=== PATIENT | female | born 1950 | race Asian ===

== ENCOUNTER 2017-03-28 15:47 | Inpatient (IN) | payer OTHER ==
[~2017-03-28] VITALS: Ht 154.9 cm; Wt 51.7 kg
[2017-03-28 17:11] LABS: BASOPHIL % 0.4 % (0-2); PLATELET COUNT 260 x10^3mcL (130-400)
[2017-03-28 17:26] LABS: CALCIUM 8.4 mg/dL (8.5-10.1); CARBON DIOXIDE 26.3 mmol/L (21-32); POTASSIUM SERUM 3.5 mmol/L (3.5-5.1)
[2017-03-28 17:30] LABS: ALBUMIN 3.3 g/dL (3.4-5.0); BILIRUBIN TOTAL 0.2 mg/dL (0.20-1.00); TOTAL PROTEIN, SERUM 7.4 g/dL (6.4-8.2)
[2017-03-28] MEDS ORDERED: LOSARTAN POTASS25 M1 PO (18:24)
[2017-03-28] MEDS ORDERED: ASPIR 8181 MG PO (18:27)
[2017-03-28] MEDS ORDERED: PRA10 PO (18:32)
[2017-03-28 19:23] VITALS: BP 167/69
[2017-03-28 19:26] VITALS: Ht 154.9 cm; Wt 51.7 kg
[2017-03-28 21:30] LABS: CHOLESTEROL/HDL RATIO 3.4; MAGNESIUM 1.7 mg/dL (1.8-2.4)
[2017-03-28 21:41] LABS: FREE T4 1.4 ng/dL (0.76-1.46); FREE THYROXINE INDEX 4.6 ug/dL (1.4-4.5); T4(THYROXINE) 12.7 ug/dL (4.7-13.3)
[2017-03-28 21:47] LABS: T3 TOTAL 0.87 ng/mL
[2017-03-28 22:11] LABS: UA SPECIFIC GRAVITY <=1.005 (1.005-1.035); microscopic required? YES; urine erythrocyte NEGATIVE (NEGATIVE)
[2017-03-28 22:58] LABS: AMPHETAMINE QUAL UR NONE DETECTED (NEG <=1000)
[2017-03-29 05:31] VITALS: BP 151/69
[2017-03-29 07:29] LABS: CALCIUM 8.6 mg/dL (8.5-10.1); CARBON DIOXIDE 27.9 mmol/L (21-32); MAGNESIUM 1.9 mg/dL (1.8-2.4); POTASSIUM SERUM 3.9 mmol/L (3.5-5.1)
[2017-03-29 07:36] LABS: BASOPHIL % 0.4 % (0-2); PLATELET COUNT 254 x10^3mcL (130-400); RED CELL DISTRIBUTION WIDTH 12.8 % (11.5-14.5)
[2017-03-29 09:03] VITALS: BP 166/67
[2017-03-29 13:21] VITALS: BP 155/78
[2017-03-29 16:26] VITALS: BP 135/64
[2017-03-29 20:49] VITALS: BP 139/58
[2017-03-30 05:44] VITALS: BP 151/62
[2017-03-30] MEDS ORDERED: LOSARTAN POTASS25 M1 PO (06:56)
[2017-03-30] MEDS ORDERED: KEFLEX500 M1 PO (06:57)
[2017-03-30] MEDS ORDERED: LAC PO (06:57)
[2017-03-30] MEDS ORDERED: HYDROCHLOROTH12.5 M2 PO (06:58)
[2017-03-30] MEDS ORDERED: AMLODIPINE BESYL5 M2 PO (06:58)
[2017-03-30 07:01] LABS: BASOPHIL % 0.4 % (0-2); PLATELET COUNT 270 x10^3mcL (130-400); RED CELL DISTRIBUTION WIDTH 13.2 % (11.5-14.5)
[2017-03-30 07:09] LABS: CALCIUM 8.8 mg/dL (8.5-10.1); CARBON DIOXIDE 28.5 mmol/L (21-32); MAGNESIUM 1.8 mg/dL (1.8-2.4); POTASSIUM SERUM 3.7 mmol/L (3.5-5.1)
[2017-03-30 08:04] VITALS: BP 128/56; BP 151/62
[2017-03-30 08:34] VITALS: BP 128/56
== END 2017-03-30 12:10 | disposition home or self-care (01) | DRG 304 ==
LOC: ED 15:47 → DU 18:20
PROVIDERS: Emergency Medicine; Student in an Organized Health Care Education/Training Program
DX: I16.1 Hypertensive emergency (principal); N17.0 Acute kidney failure with tubular necrosis; N39.0 Urinary tract infection, site not specified; E87.1 Hypo-osmolality and hyponatremia; E44.1 Mild protein-calorie malnutrition; R73.03 Prediabetes; E83.42 Hypomagnesemia; E83.51 Hypocalcemia; E78.1 Pure hyperglyceridemia; D50.9 Iron deficiency anemia, unspecified; Z68.22 Body mass index [BMI] 22.0-22.9, adult
CPT/HCPCS: 83880; 84439; J0696; J7030

== ENCOUNTER 2017-04-06 05:59 | Inpatient (IN) | payer OTHER ==
[~2017-04-06] VITALS: Ht 154.9 cm; Wt 52.6 kg
[~2017-04-06 05:59] MED LIST: AMLODIPINE BESYL5 M2 PO; ASPIR 8181 MG PO; HYDROCHLOROTH12.5 M2 PO; KEFLEX500 M1 PO; LAC PO; LOSARTAN POTASS25 M1 PO; PRA10 PO
[2017-04-06 06:08] VITALS: Ht 154.9 cm; Wt 52.6 kg
[2017-04-06 07:34] LABS: BASOPHIL % 0.4 % (0-2); PLATELET COUNT 265 x10^3mcL (130-400); RED CELL DISTRIBUTION WIDTH 12.7 % (11.5-14.5)
[2017-04-06 07:44] LABS: ALKALINE PHOSPHATASE 56 U/L (46-116); ALT/SGPT 26 U/L (14-59); AMYLASE 104 U/L (25-115); AST/SGOT 25 U/L (15-37); BILIRUBIN TOTAL 0.7 mg/dL (0.20-1.00); CALCIUM 7.4 mg/dL (8.5-10.1); CHLORIDE SERUM 75 mmol/L (98-107); CREATININE SERUM 0.8 mg/dL (0.6-1.0); GFR1 > 60 mL/min; GLUCOSE SERUM 115 mg/dL (74-106); LIPASE 519 IU/L (73-393); POTASSIUM SERUM 3.9 mmol/L (3.5-5.1)
[2017-04-06 07:45] LABS: ALBUMIN 3.3 g/dL (3.4-5.0)
[2017-04-06 07:47] LABS: SODIUM SERUM 107 mmol/L (136-145)
[2017-04-06 09:59] LABS: MAGNESIUM 1.4 mg/dL (1.8-2.4); PHOSPHOROUS 2.5 mg/dL (2.5-4.9)
[2017-04-06 10:03] LABS: CHOLESTEROL/HDL RATIO 2.2
[2017-04-06 10:09] LABS: FREE T4 1.95 ng/dL (0.76-1.46)
[2017-04-06 10:15] VITALS: BP 138/54
[2017-04-06 10:15] LABS: FREE THYROXINE INDEX 5.8 ug/dL (1.4-4.5); T4(THYROXINE) 14.5 ug/dL (4.7-13.3)
[2017-04-06 10:31] VITALS: BP 138/54
[2017-04-06 10:31] LABS: T3 TOTAL 0.97 ng/mL
[2017-04-06 12:17] LABS: IRON 57 ug/dL (50-170); TOTAL IRON BINDING CAPACITY 295 ug/dL (250-450)
[2017-04-06 13:50] VITALS: BP 105/49; BP 134/58
[2017-04-06 13:51] LABS: CALCIUM 8.1 mg/dL (8.5-10.1); CARBON DIOXIDE 25.8 mmol/L (21-32); CHLORIDE SERUM 79 mmol/L (98-107); CREATININE SERUM 0.9 mg/dL (0.6-1.0); GFR1 > 60 mL/min; GLUCOSE SERUM 104 mg/dL (74-106); POTASSIUM SERUM 4.1 mmol/L (3.5-5.1)
[2017-04-06 13:56] LABS: SODIUM SERUM 112 mmol/L (136-145)
[2017-04-06 17:30] VITALS: BP 142/59
[2017-04-06 20:18] LABS: CARBON DIOXIDE 27.1 mmol/L (21-32); CREATININE SERUM 1.1 mg/dL (0.6-1.0); POTASSIUM SERUM 3.7 mmol/L (3.5-5.1)
[2017-04-06 21:11] VITALS: BP 120/53
[2017-04-06 22:17] LABS: UA SPECIFIC GRAVITY <=1.005 (1.005-1.035); microscopic required? YES; urine erythrocyte TRACE (NEGATIVE)
[2017-04-06 22:27] LABS: AMPHETAMINE QUAL UR NONE DETECTED (NEG <=1000)
[2017-04-07 05:00] VITALS: BP 112/55
[2017-04-07 06:15] LABS: BASOPHIL % 0.3 % (0-2); PLATELET COUNT 276 x10^3mcL (130-400)
[2017-04-07 06:26] LABS: CALCIUM 8.5 mg/dL (8.5-10.1); CARBON DIOXIDE 21.6 mmol/L (21-32); CHLORIDE SERUM 91 mmol/L (98-107); CREATININE SERUM 0.9 mg/dL (0.6-1.0); GFR1 > 60 mL/min; GLUCOSE SERUM 100 mg/dL (74-106); MAGNESIUM 2.4 mg/dL (1.8-2.4)
[2017-04-07 07:28] LABS: SODIUM SERUM 124 mmol/L (136-145)
[2017-04-07 09:29] VITALS: BP 100/41
[2017-04-07 12:18] VITALS: BP 121/50
[2017-04-07 15:02] LABS: CALCIUM 8.5 mg/dL (8.5-10.1); CARBON DIOXIDE 23.5 mmol/L (21-32); CHLORIDE SERUM 91 mmol/L (98-107); CREATININE SERUM 0.9 mg/dL (0.6-1.0); GFR1 > 60 mL/min; GLUCOSE SERUM 100 mg/dL (74-106); POTASSIUM SERUM 3.8 mmol/L (3.5-5.1); SODIUM SERUM 126 mmol/L (136-145)
[2017-04-07 16:28] VITALS: BP 128/52
[2017-04-07 21:30] VITALS: BP 108/43
[2017-04-08 05:15] VITALS: BP 93/60
[2017-04-08 06:32] LABS: BASOPHIL % 0.3 % (0-2); PLATELET COUNT 303 x10^3mcL (130-400); RED CELL DISTRIBUTION WIDTH 13.4 % (11.5-14.5)
[2017-04-08 06:40] LABS: CALCIUM 8.6 mg/dL (8.5-10.1); CARBON DIOXIDE 25.1 mmol/L (21-32); CHLORIDE SERUM 96 mmol/L (98-107); CREATININE SERUM 0.9 mg/dL (0.6-1.0); GFR1 > 60 mL/min; GLUCOSE SERUM 93 mg/dL (74-106); MAGNESIUM 2.1 mg/dL (1.8-2.4); PHOSPHOROUS 2.8 mg/dL (2.5-4.9); POTASSIUM SERUM 4.1 mmol/L (3.5-5.1); SODIUM SERUM 131 mmol/L (136-145)
[2017-04-08 08:10] VITALS: BP 141/57
[2017-04-08 09:37] VITALS: BP 141/57
[2017-04-08 13:34] VITALS: BP 149/56
[2017-04-08] MEDS ORDERED: PRI20 PO (13:34)
[2017-04-08] MEDS ORDERED: COL100 PO (13:34)
[2017-04-08 13:50] VITALS: BP 149/56
== END 2017-04-08 14:57 | disposition home or self-care (01) | DRG 438 ==
LOC: ED 05:59 → DU 09:08 → MU 09:08 → DU 10:26 → MU 04-07 09:11
PROVIDERS: Emergency Medicine; Family Medicine; Family Medicine Sports Medicine
DX: K85.30 Drug induced acute pancreatitis without necrosis or infection (principal); N17.0 Acute kidney failure with tubular necrosis; E87.1 Hypo-osmolality and hyponatremia; E44.0 Moderate protein-calorie malnutrition; T50.2X5A Adverse effect of carbonic-anhydrase inhibitors, benzothiadiazides and other diuretics, initial encounter; E83.42 Hypomagnesemia; D50.9 Iron deficiency anemia, unspecified; I10 Essential (primary) hypertension; K21.9 Gastro-esophageal reflux disease without esophagitis; Z68.21 Body mass index [BMI] 21.0-21.9, adult; Z90.49 Acquired absence of other specified parts of digestive tract; Z82.49 Family history of ischemic heart disease and other diseases of the circulatory system; Y92.009 Unspecified place in unspecified non-institutional (private) residence as the place of occurrence of the external cause
CPT/HCPCS: 83880; 84439; J1885; J2405; J3475; J3490; J7030; J7050; Q0092